=== PATIENT | female | born 1970 | race Caucasian/White ===

== ENCOUNTER 2018-01-02 13:46 | Emergency (ER) | payer OTHER ==
[~2018-01-02] VITALS: Ht 152.4 cm; Wt 45.4 kg
[~2018-01-02 13:46] MED LIST: MAALOX ADVANCE355 ML PO; PEPCID20 MG PO
[2018-01-03] MEDS ORDERED: LEVSIN/SL0.125 MG SL (05:40)
[2018-01-03] MEDS ORDERED: PEPCID40 MG PO (05:40)
[2018-01-03] MEDS ORDERED: PROTONIX40 MG PO (05:40)
[2018-01-03] MEDS ORDERED: PHENERGAN25 MG PO (05:40)
== END 2018-01-03 05:30 | disposition home or self-care (01) ==
LOC: ER 13:46
DX: K29.70 Gastritis, unspecified, without bleeding (principal)

== ENCOUNTER → 2018-10-20 | Emergency (ER) | payer OTHER ==
[~2018-10-20] VITALS: Ht 152.4 cm; Wt 43.5 kg
[~2018-10-20] MED LIST changes: +BACTRIM DS TAB1 EACH PO; +LEVSIN/SL0.125 MG SL; +PEPCID40 MG PO; +PHENERGAN25 MG PO; +PROTONIX40 MG PO
== END | disposition home or self-care (01) ==
LOC: ER 13:48
DX: R31.29 Other microscopic hematuria (principal)

== ENCOUNTER 2019-05-15 10:04 | Emergency (ER) | payer OTHER ==
[~2019-05-15] VITALS: Ht 152.4 cm; Wt 45.4 kg
== END 2019-05-15 15:29 | disposition home or self-care (01) ==
LOC: ER 10:04
DX: K29.70 Gastritis, unspecified, without bleeding (principal)